=== PATIENT | male | born 1965 | race Caucasian/White ===

== ENCOUNTER → 2019-03-04 | Outpatient (CLI) | payer MEDICAID ==
[2019-03-04 08:37] LABS: Basophils # (A) 0.1 k/uL (0-0.2); Basophils % (A) 1 %; Eosinophils # (A) 0.3 k/uL (0-0.7); Eosinophils % (A) 5 %; HCT 45.5 % (39.0-53.0); HGB 15.7 gm/dL (13.0-17.5); Lymphocytes # (A) 2.1 k/uL (1.0-4.8); Lymphocytes % (A) 38 %; MCH 32.8 pg (25.0-35.0); MCHC 34.6 g/dL (31.0-37.0); MCV 94.8 fL (80.0-100.0); Mean Platelet Volume 6.6; Monocytes # (A) 0.3 k/uL (0-1.0); Monocytes % (A) 6 %; Neutrophils # (A) 2.6 k/uL (1.3-7.7); Neutrophils % (A) 47 %; Platelet Count 282 k/uL (150-450); RDW 12.3 % (11.5-15.5); WBC 5.5 k/uL (3.8-10.6)
[2019-03-04 12:08] LABS: Albumin 4.8 g/dL (3.80-4.90); Albumin/Globulin Ratio 2.67 (1.60-3.17); Anion Gap 9.4 mmol/L (4.00-12.00); Calcium 9.4 mg/dL (8.7-10.3); Carbon Dioxide 23.6 mmol/L (21.6-31.8); Chol/HDL Ratio 2.32; Globulin 1.8 g/dL (1.6-3.3); LDL Cholesterol,Calculated 43.4 mg/dL (0.0-131.0); Potassium 4.4 mmol/L (3.5-5.5); Total Bilirubin 0.5 mg/dL (0.3-1.2); Total Protein 6.6 g/dL (6.2-8.2); VLDL Calculation 51.6 mg/dL (5.00-40.00)
== END | disposition home or self-care (01) ==
LOC: LABWHC1 07:11
PROVIDERS: ATTEND Family Medicine
DX: Z00.00 Encounter for general adult medical examination without abnormal findings (principal); I10 Essential (primary) hypertension; E78.00 Pure hypercholesterolemia, unspecified
CPT/HCPCS: 36415; 80053; 80061; 84153; 84443; 85025

== ENCOUNTER 2019-03-22 03:03 | Emergency (ER) | payer MEDICAID ==
--- NOTE | 2019-03-22 03:23 | ED ---
Chest Pain HPI - General Chief Complaint: Chest Pain Stated Complaint: chest pain Time Seen by Provider: 03/22/19 03:22 Source: patient Mode of arrival: wheelchair Limitations: no limitations - History of Present Illness Initial Comments: This patient is a 54-year-old man who presents to be evaluated for left-sided chest pain. Patient states she was in his usual state of health until between 1 and 2 weeks ago, when he developed what he is describing as cold-like symptoms. He indicates there was some upper congestion and he has had a moderate amount of cough. There is occasional sputum. Patient states that nearly 24 hours ago he noticed he was having some left-sided chest pain. The pain is aching. He noticed that it was better if he holds the left side of his chest. The pain is much worse when he takes a deep breath or when he coughs. Pain worsened tonight so he presents to have evaluation. No anginal symptoms, including no dyspnea, diaphoresis, nausea or vomiting, palpitations, lightheadedness or syncope. MD Complaint: chest pain Onset/Timin -: hour(s) Onset: during rest Pain Location: left chest Pain Radiation: none Severity: moderate Quality: aching Consistency: constant Improves With: other (Splinting the chest) Worsens With: inspiration Context: recent illness Other Symptoms: cough Treatments Prior to Arrival: none - Related Data Home Medications Medication Instructions Recorded Confirmed Aspirin [Adult Low Dose Aspirin EC] 81 mg PO DAILY 07/01/15 03/22/19 Lovastatin [Mevacor] 40 mg PO PC-LUNCH 07/01/15 03/22/19 Multivitamins, Thera [Multivitamin] 1 tab PO DAILY 07/01/15 03/22/19 amLODIPine BESYLATE/BENAZEPRIL 1 cap PO PC-LUNCH 07/01/15 03/22/19 [amLODIPine BESYLATE/BENAZEPRIL 5-20 mg] Previous Rx's Medication Instructions Recorded Ibuprofen [Motrin] 600 mg PO Q8HR PRN #20 tab 03/22/19 Allergies Allergy/AdvReac Type Severity Reaction Status Date / Time No Known Allergies Allergy Verified 07/01/15 13:49 Review of Systems ROS Statement: Those systems with pertinent positive or pertinent negative responses have been documented in the HPI. ROS Other: All systems not noted in ROS Statement are negative. Constitutional: Denies: fever, chills Respiratory: Reports: as per HPI, cough. Denies: dyspnea, wheezes, hemoptysis Cardiovascular: Reports: as per HPI, chest pain. Denies: palpitations, orthopnea, edema, syncope Gastrointestinal: Denies: abdominal pain, nausea, vomiting Musculoskeletal: Denies: back pain Skin: Denies: rash Neurological: Denies: headache EKG Findings - EKG Results: EKG: interpreted by THUAN HERRERA, sinus rhythm (Rate 91 bpm), normal axis, normal QRS, normal ST/T, no acute changes Past Medical History Past Medical History: Hyperlipidemia, Hypertension History of Any Multi-Drug Resistant Organisms: None Reported Past Surgical History: Hernia Repair, Orthopedic Surgery, Tonsillectomy Additional Past Surgical History / Comment(s): left knee surgery, growth removed from left arm(benign) Additional Past Anesthesia/Blood Transfusion Reaction / Comment(s): damage to jaw from previous intubation Past Psychological History: No Psychological Hx Reported Smoking Status: Never smoker Past Alcohol Use History: Rare Past Drug Use History: None Reported - Past Family History Mother Family Medical History: No Reported History General Exam Limitations: no limitations General appearance: alert, in no apparent distress Head exam: Present: atraumatic, normocephalic Eye exam: Present: normal appearance. Absent: scleral icterus, conjunctival injection Respiratory exam: Present: rales, rhonchi. Absent: respiratory distress, wheezes, stridor, chest wall tenderness, accessory muscle use, decreased breath sounds, prolonged expiratory Cardiovascular Exam: Present: regular rate, normal rhythm, normal heart sounds. Absent: systolic murmur, diastolic murmur, rubs, gallop GI/Abdominal exam: Present: soft. Absent: distended, tenderness, guarding, rebound, rigid, mass Extremities exam: Present: normal inspection, normal capillary refill. Absent: pedal edema, calf tenderness Back exam: Present: normal inspection. Absent: CVA tenderness (R), CVA tenderness (L) Neurological exam: Present: alert Skin exam: Present: warm, dry, intact, normal color. Absent: rash Course Vital Signs 03/22/19 03/22/19 03/22/19 03:06 03:14 03:32 Temperature 99.5 F 100.1 F H Pulse Rate 94 90 Respiratory 20 18 18 Rate Blood Pressure 126/79 O2 Sat by Pulse 95 Oximetry Disposition Clinical Impression: Pleuritis Disposition: HOME SELF-CARE Condition: Good Instructions (If sedation given, give patient instructions): Pleurisy (ED) Prescriptions: Ibuprofen [Motrin] 600 mg PO Q8HR PRN #20 tab PRN Reason: Pain Is patient prescribed a controlled substance at d/c from ED?: No Referrals: Mariano Piper Jr, [Primary Care Provider] - 1-2 days
[2019-03-22 03:50] LABS: Basophils # (A) 0.1 k/uL (0-0.2); Basophils % (A) 0 %; Eosinophils # (A) 0.2 k/uL (0-0.7); Eosinophils % (A) 1 %; HCT 43.1 % (39.0-53.0); HGB 14.5 gm/dL (13.0-17.5); Lymphocytes # (A) 2.3 k/uL (1.0-4.8); Lymphocytes % (A) 17 %; MCH 32.8 pg (25.0-35.0); MCHC 33.7 g/dL (31.0-37.0); MCV 97.2 fL (80.0-100.0); Mean Platelet Volume 7.4; Monocytes # (A) 0.6 k/uL (0-1.0); Monocytes % (A) 4 %; Neutrophils # (A) 10.2 k/uL (1.3-7.7); Neutrophils % (A) 75 %; Platelet Count 273 k/uL (150-450); RBC 4.43 m/uL (4.30-5.90); RDW 12.2 % (11.5-15.5); WBC 13.5 k/uL (3.8-10.6)
--- NOTE | 2019-03-22 03:57 | XR ---
EXAM: XR Chest, 2 Views CLINICAL HISTORY: Chest pain. TECHNIQUE: Frontal and lateral views of the chest. COMPARISON: None. FINDINGS: Lungs: The lungs are well aerated. Pleural space: No pneumothorax. No pleural effusion. Heart: Cardiomediastinal silhouette unremarkable. Mediastinum: See above. Bones/joints: Osteopenia. Alignment of the thoracic spine is unremarkable. The ribs are grossly unremarkable. IMPRESSION: No active disease.
[2019-03-22 04:05] LABS: ALT 31 U/L (21-72); AST 27 U/L (17-59); African American GFR (CKD) >90 (>60 ml/min/1.73 sqM); Albumin 4.5 g/dL (3.5-5.0); Alkaline Phosphatase 90 U/L (38-126); Anion Gap 12 mmol/L; Blood Urea Nitrogen 10 mg/dL (9-20); Calcium 9.5 mg/dL (8.4-10.2); Carbon Dioxide 20 mmol/L (22-30); Chloride 107 mmol/L (98-107); Glucose 102 mg/dL (74-99); Magnesium 2.1 mg/dL (1.6-2.3); Non-African American GFR(CKD) >90 (>60 ml/min/1.73 sqM); Potassium 4.1 mmol/L (3.5-5.1); Sodium 139 mmol/L (137-145); Total Bilirubin 0.5 mg/dL (0.2-1.3); Total Protein 7.3 g/dL (6.3-8.2)
[2019-03-22 04:06] LABS: D-Dimer <0.17 mg/L FEU (<0.60); INR 0.8 (<1.2); Partial Thromboplastin Time 27.8 sec (22.0-30.0); Prothrombin Time 9.3 sec (9.0-12.0)
[2019-03-22] MEDS ORDERED: KETOROLAC 30 MG/ML 1 ML VIAL IVP STA (04:48)
[2019-03-22] MEDS ORDERED: IBUPROFEN 400 MG TAB PO STA (04:54)
[2019-03-22 05:13] VITALS: BP 141/80; PULSE 88; RESP 14; TEMP 100.3
== END 2019-03-22 05:16 | disposition home or self-care (01) ==
LOC: EC 03:03
DX: R09.1 Pleurisy (principal); R09.89 Other specified symptoms and signs involving the circulatory and respiratory systems; R05 Cough; R07.1 Chest pain on breathing; E78.5 Hyperlipidemia, unspecified; I10 Essential (primary) hypertension; Z79.82 Long term (current) use of aspirin; Z79.899 Other long term (current) drug therapy; Z53.8 Procedure and treatment not carried out for other reasons
CPT/HCPCS: 36415; 71046; 80053; 83735; 84484; 85025; 85379; 85610; 85730; 93005; 99284

== ENCOUNTER → 2020-02-24 | Outpatient (CLI) | payer MEDICAID ==
[2020-02-24 07:32] LABS: Basophils # (A) 0.1 k/uL (0-0.2); Basophils % (A) 1 %; Eosinophils # (A) 0.2 k/uL (0-0.7); Eosinophils % (A) 5 %; HCT 39.4 % (39.0-53.0); HGB 12.8 gm/dL (13.0-17.5); Lymphocytes % (A) 42 %; MCH 32.3 pg (25.0-35.0); MCHC 32.6 g/dL (31.0-37.0); MCV 99.1 fL (80.0-100.0); Mean Platelet Volume 7.3; Monocytes # (A) 0.3 k/uL (0-1.0); Monocytes % (A) 6 %; Neutrophils # (A) 2.1 k/uL (1.3-7.7); Neutrophils % (A) 45 %; Platelet Count 327 k/uL (150-450); RBC 3.97 m/uL (4.30-5.90); RDW 12.8 % (11.5-15.5); WBC 4.8 k/uL (3.8-10.6)
[2020-02-24 11:02] LABS: African American GFR (CKD) 97.1 (60.0-200.0); Albumin 4.5 g/dL (3.80-4.90); Albumin/Globulin Ratio 2.5 (1.60-3.17); Anion Gap 8.3 mmol/L (4.00-12.00); Calcium 9.3 mg/dL (8.7-10.3); Carbon Dioxide 24.7 mmol/L (21.6-31.8); Chol/HDL Ratio 2.27; Globulin 1.8 g/dL (1.6-3.3); LDL Cholesterol,Calculated 60.6 mg/dL (0.0-131.0); Non-African American GFR(CKD) 83.8 (60.0-200.0); Potassium 4.6 mmol/L (3.5-5.5); Total Bilirubin 0.3 mg/dL (0.3-1.2); Total Protein 6.3 g/dL (6.2-8.2); VLDL Calculation 29.4 mg/dL (5.00-40.00)
[2020-02-24 11:59] LABS: Prostate Specific Antigen 2.1 ng/mL (0.0-3.5)
[2020-02-24 12:52] LABS: T4, Free (Free Thyroxine) 0.8 ng/dL (0.80-1.80)
== END | disposition home or self-care (01) ==
LOC: LABWHC1 07:13
PROVIDERS: ATTEND Nurse Practitioner Family
DX: Z00.00 Encounter for general adult medical examination without abnormal findings (principal); E78.2 Mixed hyperlipidemia; I10 Essential (primary) hypertension; E55.9 Vitamin D deficiency, unspecified; R53.83 Other fatigue; Z79.899 Other long term (current) drug therapy
CPT/HCPCS: 36415; 80053; 80061; 82306; 84153; 84439; 84443; 85025

== ENCOUNTER → 2020-03-04 | Outpatient (CLI) | payer MEDICAID | END | disposition home or self-care (01) | LOC: LABWHC1 07:23 | PROVIDERS: ATTEND Allergy & Immunology | DX: T78.2XXA Anaphylactic shock, unspecified, initial encounter (principal); Z91.012 Allergy to eggs; Z91.011 Allergy to milk products; Z91.010 Allergy to peanuts; Z91.018 Allergy to other foods | CPT/HCPCS: 36415 ==

== ENCOUNTER → 2020-03-12 | Outpatient (CLI) | payer MEDICAID ==
[2020-03-12 21:45] LABS: Thyroid Peroxidase Antibodies 2849.7 U/mL (0.0-60.0)
== END | disposition home or self-care (01) ==
LOC: LABWHC1 07:42
PROVIDERS: ATTEND Allergy & Immunology
DX: T78.3XXD Angioneurotic edema, subsequent encounter (principal)
CPT/HCPCS: 36415; 86160; 86161; 86376; 86800

== ENCOUNTER → 2020-03-15 | Outpatient (CLI) | payer MEDICAID ==
[2020-03-15 14:39] LABS: T4, Free (Free Thyroxine) 0.67 ng/dL (0.78-2.19)
--- NOTE | 2020-03-15 18:03 | US ---
EXAMINATION TYPE: US thyroid st tissue head/neck DATE OF EXAM: 03/15/2020 COMPARISON: NONE CLINICAL HISTORY: 55-year-old male E06.3 AUTOIMMUNE THYROIDITIS. Abnormal labs. No thyroid meds. TECHNIQUE: Multiple sonographic images of the thyroid gland are obtained. FINDINGS: GLAND SIZE: Right Lobe: 4.9 x 1.6 x 1.4 cm Overall Parenchyma: homogenous Left Lobe: 4.2 x 1.7 x 0.8 cm Overall Parenchyma: homogeneous Isthmus Thickness: 0.2 cm Relatively homogeneous appearance of the gland parenchyma but with diffuse hyperemia. NODULES RIGHT: # of nodules measured on right: 0 LEFT: # of nodules measured on left: 0 ISTHMUS: # of nodules measured in the isthmus: 0 Bilateral neck scanned, no evidence of lymphadenopathy. IMPRESSION: Thyroid gland measurements normal to upper limits of normal in size. Generalized glandular hyperemia may reflect diffuse thyroiditis. No discrete nodules.
== END | disposition home or self-care (01) ==
LOC: RADUSWWP 12:49
PROVIDERS: ATTEND Allergy & Immunology
DX: R68.89 Other general symptoms and signs (principal); E06.3 Autoimmune thyroiditis; K52.9 Noninfective gastroenteritis and colitis, unspecified
CPT/HCPCS: 76536; 84439; 84443; 84480; 84481

== ENCOUNTER → 2020-04-05 | Outpatient (CLI) | payer MEDICAID ==
[2020-04-05 09:12] LABS: HCT 41.8 % (39.0-53.0); HGB 13.8 gm/dL (13.0-17.5); MCH 34.2 pg (25.0-35.0); MCHC 32.9 g/dL (31.0-37.0); MCV 103.8 fL (80.0-100.0); Macrocytosis Slight; Mean Platelet Volume 7.2; Platelet Count 309 k/uL (150-450); RBC 4.03 m/uL (4.30-5.90); RDW 12.3 % (11.5-15.5); WBC 5.6 k/uL (3.8-10.6)
[2020-04-05 14:42] LABS: African American GFR (CKD) 96.4 (60.0-200.0); Albumin 4.4 g/dL (3.80-4.90); Albumin/Globulin Ratio 2.44 (1.60-3.17); Anion Gap 6.1 mmol/L (4.00-12.00); Calcium 8.8 mg/dL (8.7-10.3); Carbon Dioxide 25.9 mmol/L (21.6-31.8); Globulin 1.8 g/dL (1.6-3.3); Non-African American GFR(CKD) 83.2 (60.0-200.0); Potassium 4.7 mmol/L (3.5-5.5); Total Bilirubin 0.4 mg/dL (0.3-1.2); Total Protein 6.2 g/dL (6.2-8.2)
[2020-04-05 14:44] LABS: Chol/HDL Ratio 1.81
[2020-04-05 14:53] LABS: Follicle Stimulating Hormone 5.4 mIU/mL; Luteinizing Hormone 3.2 mIU/mL; Prolactin 4.2 ng/mL (2.1-17.7); T4, Free (Free Thyroxine) 0.9 ng/dL (0.80-1.80)
[2020-04-05 14:55] LABS: Prostate Specific Antigen 2.2 ng/mL (0.0-3.5)
[2020-04-05 15:13] LABS: Thyroid Peroxidase Antibodies 2702.6 U/mL (0.0-60.0)
[2020-04-05 19:20] LABS: ACTH 8.89 pg/mL (0.00-45.99)
== END | disposition home or self-care (01) ==
LOC: LABWHC1 07:53
PROVIDERS: ATTEND Internal Medicine Endocrinology, Diabetes & Metabolism
DX: E03.9 Hypothyroidism, unspecified (principal); E55.9 Vitamin D deficiency, unspecified; E78.5 Hyperlipidemia, unspecified
CPT/HCPCS: 36415; 80053; 80061; 82024; 82306; 83001; 83002; 84146; 84153; 84270; 84403; 84439; 84443; 85027; 86376

== ENCOUNTER → 2020-07-14 | Outpatient (CLI) | payer MEDICAID ==
[2020-07-14 14:58] LABS: T4, Free (Free Thyroxine) 0.9 ng/dL (0.80-1.80)
[2020-07-14 16:53] LABS: Thyroid Peroxidase Antibodies 2563.9 U/mL (0.0-60.0)
== END | disposition home or self-care (01) ==
LOC: LABWHC1 08:14
PROVIDERS: ATTEND Internal Medicine Endocrinology, Diabetes & Metabolism
DX: E03.9 Hypothyroidism, unspecified (principal)
CPT/HCPCS: 36415; 82306; 84439; 84443; 84445; 84480; 86376

== ENCOUNTER → 2020-11-04 | Outpatient (CLI) | payer MEDICAID ==
[2020-11-05 06:32] LABS: Follicle Stimulating Hormone 7.6 mIU/mL
[2020-11-05 06:40] LABS: Chol/HDL Ratio 3.38
[2020-11-05 06:50] LABS: Thyroid Peroxidase Antibodies 3240.6 U/mL (0.0-60.0)
== END | disposition home or self-care (01) ==
LOC: LABWHC1 07:32
PROVIDERS: ATTEND Internal Medicine Endocrinology, Diabetes & Metabolism
DX: E78.5 Hyperlipidemia, unspecified (principal); E55.9 Vitamin D deficiency, unspecified; E03.9 Hypothyroidism, unspecified
CPT/HCPCS: 36415; 80061; 82306; 83001; 83002; 83721; 84403; 84439; 84443; 84480; 86376

== ENCOUNTER → 2021-02-28 | Outpatient (CLI) | payer MEDICAID ==
[2021-02-28 13:18] LABS: African American GFR (CKD) 85.9 (60.0-200.0); Albumin 4.6 g/dL (3.80-4.90); Albumin/Globulin Ratio 2.09 (1.60-3.17); Anion Gap 12.7 mmol/L (4.00-12.00); BUN/Creat Ratio 11.82 Ratio (12.00-20.00); Calcium 9.6 mg/dL (8.7-10.3); Carbon Dioxide 16.3 mmol/L (21.6-31.8); Chol/HDL Ratio 2.62; Globulin 2.2 g/dL (1.6-3.3); LDL Cholesterol,Calculated 32.2 mg/dL (0.0-131.0); Non-African American GFR(CKD) 74.1 (60.0-200.0); Potassium 4.7 mmol/L (3.5-5.5); Total Bilirubin 0.3 mg/dL (0.2-1.2); Total Protein 6.8 g/dL (6.2-8.2); VLDL Calculation 66.8 mg/dL (5.00-40.00)
[2021-02-28 13:26] LABS: PSA Annual Screen 1.8 ng/mL (0.0-4.0)
== END | disposition home or self-care (01) ==
LOC: LABWHC1 07:10
PROVIDERS: ATTEND Family Medicine
DX: Z00.00 Encounter for general adult medical examination without abnormal findings (principal); E78.2 Mixed hyperlipidemia; E03.9 Hypothyroidism, unspecified; Z63.79 Other stressful life events affecting family and household; R19.4 Change in bowel habit
CPT/HCPCS: 84439; 80061; 80053; 84443; 84480; 86376; 82306; 36415; G0103

== ENCOUNTER 2021-03-01 10:44 | Day surgery (SDC) | payer MEDICAID ==
[2021-03-01 11:05] VITALS: TEMP 97.3
[2021-03-01] MEDS ORDERED: LIDOCAINE 1% (10MG/ML) FOR IV START INTRADERMA ONE (11:12)
[2021-03-01] MEDS ORDERED: LACTATED RINGERS 1,000 ML IV ONE (11:12)
--- NOTE | 2021-03-01 11:28 | P.HPIHPCON ---
History of Present Illness H&P Date: 03/01/21 55-year-old presenting today for lower endoscopy. He has never had lower endoscopy before. He states over the past 2 weeks he has had increased blood in his stool. He has had this issue on and off over the past few years, however it has been every day or multiple times a day over the past few weeks. Denies any nausea or vomiting. Denies abdominal pain. Consent for Procedure: I have explained the operation/procedure to the patient, including the risks, benefits, side effects, alternative therapies (including not receiving the proposed treatment or service), the likelihood of the patient achieving his/her goals, and potential recuperation problems for the procedure/sedation/analgesia, as well as any blood products, if indicated. I also explained to the patient the risks, benefits and side effects of the alternatives, as well as the risks related to not receiving the proposed procedure, care, treatment, or services. - Review of Systems All systems: negative Past Medical History Past Medical History: Hyperlipidemia, Hypertension History of Any Multi-Drug Resistant Organisms: None Reported Past Surgical History: Hernia Repair, Orthopedic Surgery, Tonsillectomy Additional Past Surgical History / Comment(s): left knee surgery, growth removed from left arm(benign) Additional Past Anesthesia/Blood Transfusion Reaction / Comment(s): damage to jaw from previous intubation Past Psychological History: No Psychological Hx Reported Past Alcohol Use History: Rare Past Drug Use History: None Reported - Past Family History Mother Family Medical History: No Reported History Medications and Allergies Home Medications Medication Instructions Recorded Confirmed Type Lovastatin [Mevacor] 40 mg PO HS 07/01/15 03/01/21 History Multivitamins, Thera [Multivitamin] 1 tab PO HS 07/01/15 03/01/21 History amLODIPine BESYLATE/BENAZEPRIL 1 cap PO HS 07/01/15 03/01/21 History [amLODIPine BESYLATE/BENAZEPRIL 5-20 mg] Allergies Allergy/AdvReac Type Severity Reaction Status Date / Time No Known Allergies Allergy Verified 03/01/21 11:22 Surgical - Exam Osteopathic Statement: *. No significant issues noted on an osteopathic structural exam other than those noted in the History and Physical/Consult. Vital Signs Temp Pulse Resp BP Pulse Ox 97.3 F L 65 16 139/77 100 03/01/21 11:02 03/01/21 11:02 03/01/21 11:02 03/01/21 11:02 03/01/21 11:02 - General well nourished, no distress - Eyes normal ocular movement - ENT no hearing loss - Neck trachea midline - Respiratory normal respiratory effort - Abdomen Abdomen: soft, non tender - Psychiatric oriented to time, oriented to person, oriented to place Assessment and Plan Plan: Plan is for colonoscopy due to rectal bleeding and for screening. Risks, benefits and alternatives were provided to the patient. He did provide consent prior to attending the endoscopy suite. Further recommendations after procedure.
[2021-03-01] MEDS ORDERED: PROPOFOL 10 MG/ML 20 ML VIAL IV ONE (11:37)
--- NOTE | 2021-03-01 11:59 | P.PCN ---
Date of Procedure: 03/01/21 Preoperative Diagnosis: Screening Rectal bleeding Postoperative Diagnosis: Internal hemorrhoids diverticulosis Procedure(s) Performed: Colonoscopy Anesthesia: MAC Surgeon: Raine Hidalgo Pathology: none sent Condition: stable Disposition: same day Indications for Procedure: 55-year-old male presents today for lower endoscopy. He has never had a colonoscopy previously. He has had recent blood in his stool over the past few weeks. He denies any abdominal pain. Plan is for colonoscopy. Risks, benefits and alternatives were provided to the patient. Operative Findings: Diverticulosis Internal hemorrhoids Description of Procedure: The patient was brought into the endoscopy suite and placed in left lateral decubitus position. Adequate sedation was achieved using conscious sedation. A digital rectal exam was performed and mild internal hemorrhoids were palpated. An endoscope was then placed in the rectum and advanced to the cecum as identified by landmarks including the appendiceal orifice and the ileocecal valve. The prep was good. The colonoscope was then slowly withdrawn, examining for any mucosal abnormalities. The cecum, ascending, transverse, descending and sigmoid colon were visualized adequately. There were no large neoplastic lesions throughout the colon. There were no obvious polyps noted throughout the colon. There was a mild amount of diverticulosis noted scattered through the sigmoid colon. Retroflexion was performed in the rectum and internal hemorrhoids were visible. Excess air was removed, the colonoscope withdrawn and the procedure terminated. The patient was then transferred to the recovery unit in stable condition. Repeat colonoscopy should be performed in 8 years, unless otherwise required for symptoms.
[2021-03-01 12:16] VITALS: BP 126/77; PULSE 71; RESP 16
== END 2021-03-01 12:50 | disposition home or self-care (01) ==
LOC: ORWHC2ENDO 10:44
PROVIDERS: ATTEND Surgery
DX: K57.30 Diverticulosis of large intestine without perforation or abscess without bleeding (principal); K64.8 Other hemorrhoids; K62.5 Hemorrhage of anus and rectum; Z80.0 Family history of malignant neoplasm of digestive organs; I10 Essential (primary) hypertension; E78.5 Hyperlipidemia, unspecified; E78.00 Pure hypercholesterolemia, unspecified; Z82.49 Family history of ischemic heart disease and other diseases of the circulatory system; Z98.890 Other specified postprocedural states; Z79.899 Other long term (current) drug therapy
CPT/HCPCS: 45378; J2704

== ENCOUNTER 2021-11-19 11:27 | Emergency (ER) | payer BC, MEDICAID ==
[2021-11-19 11:39] VITALS: BP 138/96; PULSE 88; RESP 18; TEMP 97.7
[2021-11-19] MEDS ORDERED: LIDOCAINE 1%-EPI 1:100,000 20 ML VIAL SQ STA (11:50)
--- NOTE | 2021-11-19 11:54 | ED ---
Wound/Laceration HPI - General Chief Complaint: Wound/Laceration Stated Complaint: Chin laceration Time Seen by Provider: 11/19/21 11:49 Source: patient, RN notes reviewed, old records reviewed Mode of arrival: ambulatory Limitations: no limitations - History of Present Illness Initial Comments: 56-year-old male presents to the emergency room with laceration to his chin sustained around 10:30 this morning. Patient states that he was using the chainsaw and it kicked back and the handle hit him in the chin. He did not loose consciousness. He has no other injuries. He states that his tetanus shot is up-to-date. -: hour(s) (1) Location: face (chin) Place: outdoors Patient Tetanus UTD: Yes Context: accidental Associated Symptoms: none Treatments Prior to Arrival: bandage - Related Data Home Medications Medication Instructions Recorded Confirmed Lovastatin [Mevacor] 40 mg PO HS 07/01/15 03/01/21 Multivitamins, Thera [Multivitamin 1 tab PO HS 07/01/15 03/01/21 (formulary)] amLODIPine BESYLATE/BENAZEPRIL 1 cap PO HS 07/01/15 03/01/21 [amLODIPine BESYLATE/BENAZEPRIL 5-20 MG] Allergies Allergy/AdvReac Type Severity Reaction Status Date / Time No Known Allergies Allergy Verified 11/19/21 11:39 Review of Systems ROS Statement: Those systems with pertinent positive or pertinent negative responses have been documented in the HPI. ROS Other: All systems not noted in ROS Statement are negative. Past Medical History Past Medical History: Hyperlipidemia, Hypertension History of Any Multi-Drug Resistant Organisms: None Reported Past Surgical History: Hernia Repair, Orthopedic Surgery, Tonsillectomy Additional Past Surgical History / Comment(s): left knee surgery, growth removed from left arm(benign) Additional Past Anesthesia/Blood Transfusion Reaction / Comment(s): damage to jaw from previous intubation Past Psychological History: No Psychological Hx Reported Smoking Status: Never smoker Past Alcohol Use History: Rare Past Drug Use History: None Reported - Past Family History Mother Family Medical History: No Reported History General Exam Limitations: no limitations General appearance: alert, in no apparent distress Head exam: Present: normocephalic Expanded Head exam: Present: laceration (chin approx 3cm). Absent: raccoon eyes, general tenderness Eye exam: Present: normal appearance. Absent: scleral icterus, conjunctival injection ENT exam: Present: normal exam, normal oropharynx, mucous membranes moist Neck exam: Present: full ROM. Absent: tenderness, meningismus Respiratory exam: Absent: respiratory distress, accessory muscle use Cardiovascular Exam: Present: regular rate Neurological exam: Present: alert, oriented X3, normal gait Psychiatric exam: Present: normal affect, normal mood Skin exam: Present: warm, dry, normal color. Absent: cyanosis, diaphoretic, petechiae, pallor Course Vital Signs 11/19/21 11:37 Temperature 97.7 F Pulse Rate 88 Respiratory 18 Rate Blood Pressure 138/96 O2 Sat by Pulse 99 Oximetry Procedures - Laceration Laceration #1 Consent Obtained: verbal consent Indication: laceration Site: face (chin) Size (cm): 3 Description: linear Depth: simple, single layer Anesthetic Used: lidocaine 1%, with epi Anesthesia Technique: local infiltration Pre-repair: irrigated extensively Size of Sutures: 5-0 Number of Sutures: 4 Technique: simple, interrupted Patient Tolerated Procedure: well Medical Decision Making - Medical Decision Making Patient was cutting wood with a chainsaw when handle of chainsaw hit him in the chin. No loss of consciousness no other injuries. His tetanus shot is up-to-date. Wound was irrigated extensively with saline and closed with 4 sutures. He was directed to follow up with his primary care doctor in 5-7 days for suture removal and return to the emergency room with any new or concerning symptoms. Use bacitracin twice a day and keep wound covered for the first 48 hours Disposition Clinical Impression: Laceration Disposition: HOME SELF-CARE Condition: Good Instructions (If sedation given, give patient instructions): Facial Laceration (ED) Additional Instructions: Follow up with your primary care doctor in 5-7 days for suture removal and return to the emergency room with any new or concerning symptoms. Use bacitracin twice a day and keep wound covered for the first 48 hours Return to the emergency room with any new or concerning symptoms including fever, increased redness or pain. Is patient prescribed a controlled substance at d/c from ED?: No Referrals: Allie Ramesh MD [Primary Care Provider] - 1-2 days Time of Disposition: 12:27
[2021-11-19] MEDS ORDERED: BACITRACIN OINT 1 EACH PACKET TOPICAL STA (12:35)
== END 2021-11-19 12:45 | disposition home or self-care (01) ==
LOC: EC 11:27
DX: S01.81XA Laceration without foreign body of other part of head, initial encounter (principal); I10 Essential (primary) hypertension; E78.5 Hyperlipidemia, unspecified; Z79.899 Other long term (current) drug therapy; W29.3XXA Contact with powered garden and outdoor hand tools and machinery, initial encounter
CPT/HCPCS: 12013; 99282